=== PATIENT | female | born 1970 | race Caucasian/White ===

== ENCOUNTER 2017-08-29 12:40 | Emergency (ER) | payer OTHER ==
[~2017-08-29] VITALS: Ht 162.6 cm; Wt 59.0 kg
[2017-08-29 12:47] VITALS: BP 115/74; PULSE 68; RESP 16; TEMP 97.9; O2SAT 95
--- NOTE | 2017-08-29 14:09 | RADRPT ---
EXAM DATE/TIME: 08/29/2017 13:44 [place] COMPARISON: No previous studies available for comparison. INDICATIONS : Patient fell and hit head. RADIATION DOSE: 35.94 CTDIvol (mGy) MEDICAL HISTORY : None SURGICAL HISTORY : None. ENCOUNTER: Initial ACUITY: 1 day PAIN SCALE: 1/10 LOCATION: cranial TECHNIQUE: Multiple contiguous axial images were obtained of the head. Using automated exposure control and adj ustment of the mA and/or kV according to patient size, radiation dose was kept as low as reasonably a chievable to obtain optimal diagnostic quality images. DICOM format image data is available electro nically for review and comparison. FINDINGS: CEREBRUM: Questionable density in the suprasellar region on the left. The ventricles are normal for age. No ev idence of midline shift, mass lesion, hemorrhage or acute infarction. No extra-axial fluid collectio ns are seen. POSTERIOR FOSSA: The cerebellum and brainstem are intact. The 4th ventricle is midline. The cerebellopontine angle i s unremarkable. EXTRACRANIAL: The visualized portion of the orbits is intact. SKULL: The calvaria is intact. No evidence of skull fracture. CONCLUSION: 1. Questionable density in the suprasellar region could be volume averaging from adjacent brain paren chyma in the frontal lobe versus aneurysm. 2. No intraparenchymal hemorrhage. David Seaman MD on August 29, 2017 at 13:58 Board Certified Radiologist. This report was verified electronically.
--- NOTE | 2017-08-29 15:43 | PD ---
HPI Chief Complaint: Musculoskeletal Complaint Time Seen by Provider: 15:22 Travel History International Travel<30 days: No Contact w/Intl Traveler<30days: No Traveled to known affect area: No History of Present Illness HPI 47-year-old female presents to the emergency department status post being seen at the [place] [facility], and sent here via ambulance status post trip and fall yesterday with contusion to the head. Patient has mild headache approximate 2 out of 10 since her fall. Patient denies loss of consciousness, dizziness, nausea, or vomiting. Patient is not on anticoagulation. CT of the head was ordered in triage. Patient has no other injury. She is allergic to sulfa. PFSH Past Medical History ?: Unknown LMP: 3 MONTHS AGO, BTL Social History Alcohol Use: Yes Tobacco Use: No Substance Use: No Allergies-Medications (Allergen,Severity, Reaction): Coded Allergies: Sulfa (Sulfonamide Antibiotics) (Verified Allergy, Unknown, 08/29/17) Review of Systems Except as stated in HPI: all other systems reviewed are Neg General / Constitutional: No: Fever Eyes: No: Visual changes HENT: No: Headaches, Vertigo, Lightheadedness Cardiovascular: No: Chest Pain or Discomfort Respiratory: No: Shortness of Breath Gastrointestinal: No: Abdominal Pain Genitourinary: No: Dysuria Musculoskeletal: No: Pain Skin: No Rash Neurologic: No: Weakness Psychiatric: No: Depression Endocrine: No: Polydipsia Hematologic/Lymphatic: No: Easy Bruising Physical Exam Narrative GENERAL: Patient appears in no acute distress. She is alert and oriented 3. She is comfortable sitting on the bed. SKIN: Warm and dry. Normal color. Normal turgor. Patient is mild bruise to the left anterior scalp. HEAD: Atraumatic. Normocephalic. Mild tenderness over the left anterior lateral scalp EYES: Pupils equal and round. No scleral icterus. No injection or drainage. ENT: No nasal bleeding or discharge. Mucous membranes pink and moist. No dental injury. Pharynx is clear. Airway is patent NECK: Trachea midline. No bony tenderness or step-off. Range of motion is full and nontender. CARDIOVASCULAR: Regular rate and rhythm. RESPIRATORY: No accessory muscle use. Clear to auscultation. Breath sounds equal bilaterally. GASTROINTESTINAL: Abdomen soft, non-tender, nondistended. Hepatic and splenic margins not palpable. MUSCULOSKELETAL: Extremities without clubbing, cyanosis, or edema. No obvious deformities. NEUROLOGICAL: Awake and alert. No obvious cranial nerve deficits. Motor grossly within normal limits. Five out of 5 muscle strength in the arms and legs. Normal speech. PSYCHIATRIC: Appropriate mood and affect; insight and judgment normal. Data Data Last Documented VS Vital Signs Date Time Temp Pulse Resp B/P (MAP) Pulse Ox O2 Delivery O2 Flow Rate FiO2 08/29/17 12:47 97.9 68 16 115/74 (88) 95 Room Air Orders Orders Ct Brain W/O Iv Contrast(Rout) (08/29/17 ) MDM Medical Decision Making Medical Screen Exam Complete: Yes Emergency Medical Condition: Yes Differential Diagnosis Trip and fall. Head contusion. Headache. Narrative Course Patient is medically stable at time of exam. CT shows: CONCLUSION: 1. Questionable density in the suprasellar region could be volume averaging from adjacent brain parenchyma in the frontal lobe versus aneurysm. 2. No intraparenchymal hemorrhage. Patient is felt to be medically stable for discharge home. Patient is given a copy of the [facility] Patient should return immediately with worsening headache or nausea or vomiting. Diagnosis Primary Impression: Fall (on)(from) sidewalk curb, initial encounter Referrals: [facility] [place] Patient Instructions: Acute Headache (ED), General Instructions, Scalp Contusion in Adults (ED) Additional Instructions: Patient is medically stable at time of exam. CT shows: CONCLUSION: 1. Questionable density in the suprasellar region could be volume averaging from adjacent brain parenchyma in the frontal lobe versus aneurysm. 2. No intraparenchymal hemorrhage. Patient is felt to be medically stable for discharge home. Patient is given a copy of the CT [facility] Patient should return immediately with worsening headache or nausea or vomiting. Med/Other Pt SpecificInfo: No Meds Exist/No RX given Disposition: 01 DISCHARGE HOME Condition: Stable Nikhil Vasquez Aug 29, 2017 15:43
== END 2017-08-29 16:09 | disposition home or self-care (01) ==
LOC: NEPB 12:40
DX: S00.93XA Contusion of unspecified part of head, initial encounter (principal); R51 Headache; W01.0XXA Fall on same level from slipping, tripping and stumbling without subsequent striking against object, initial encounter
CPT/HCPCS: 70450; 99284